=== PATIENT | female | born 1995 | race Caucasian/White ===

== ENCOUNTER 2024-12-26 07:18 | Emergency (ER) | payer BC, SELFPAY ==
[2024-12-26 07:18] VITALS: BP 139/91; PULSE 111; RESP 14; TEMP 36.6; O2SAT 98; BMI 35.9
--- NOTE | 2024-12-26 08:23 | EDS_ITS ---
HPI History of Present Illness Chief Complaint: Abd Pain Informant: patient Narrative Narrative: Patient is a 29-year-old female who reports no significant past medical history. She states she went to bed normally and then woke around 1:30 in the morning with generalized abdominal discomfort and bouts of nausea and vomiting. She denies any known sick contacts at work. She denies any underlying history of stomach disorder. She states that she cannot keep any medication or fluid down and this concerned her and therefore she presents for evaluation [facility] Medical History no medical history no medical history Home Medications ?Medication ?Instructions ?Recorded ?Last Taken ?Type benzonatate 100 mg capsule 100 - 200 mg (1 - 2 x 100 m g) PO 07/31/15 Unknown Rx TID PRN PRN Cough ##20 etodolac 300 mg capsule 300 mg PO TIDCM ##30 6 Unknown Rx Allergy/AdvReac Type Severity Reaction Status Date / Time No Known Allergies Allergy Verified 12/26/24 07:18 Social History Smoking Status: Never smoker [facility] ED Constitutional Constitutional ED: Denies chills or fever(s) ENT ENT ED: Denies sore throat Cardiovascular Cardiovascular: Denies chest pain Respiratory/Chest Respiratory/Chest: Denies cough or dyspnea Gastrointestinal Gastrointestinal: Reports abdominal pain, nausea and vomiting; Denies diarrhea Genitourinary Genitourinary ED: Denies dysuria Musculoskeletal Musculoskeletal: Denies back pain or myalgias Integumentary Denies rash Neurologic Neurologic: Denies headache(s) Hematologic/Lymphatic Hematologic/Lymphatic: Denies easy bleeding or easy bruising EXAM Physical Exam Const Vital Signs: 12/26/24 07:18 Temperature 98 F Temperature Source Temporal Pulse Rate 111 H Respiratory Rate 14 Blood Pressure 139/91 H Blood Pressure Mean 107 Pulse Ox 98 Oxygen Delivery Method Room Air Positive well nourished, well developed and obese General Appearance ED: well developed; Negative for pallor Nutritional Appearance: obese HEENT Reports moist mucous membranes HEENT Narrative: Normocephalic atraumatic No tongue or lip swelling no oral lesions no airway edema or compromise No secondary findings in the posterior pharynx to suggest infection Eyes PERRL and EOMs intact bilaterally General Eye ED: Negative for scleral icterus Neck supple Resp normal respiratory effort and clear to auscultation bilaterally Cardio regular rate and regular rhythm GI non-distended and no masses GI Narrative: Abdomen is soft and nondistended with hyperactive bowel sounds. There is mild diffuse pain with palpation without voluntary guarding or rigidity or pulsatile mass. No peritoneal signs Auscultation: hyperactive bowel sounds Palpation: soft Extremity normal to inspection Neuro oriented x3, CN's II-XII intact bilaterally and no sensory deficits noted Sensorium / Orientation: alert Motor Exam: strength 5/5 throughout Psych Mood & Affect: anxious Skin no rashes or lesions noted General Skin Exam: Negative for jaundice or pallor MDM MDM MDM Narrative Medical decision making narrative: Patient presented to ER after approximately 7 hours of generalized abdominal discomfort and nausea and vomiting. She is afebrile and her abdomen is soft and nonsurgical. Therefore it felt only need for basic laboratory studies to assess for potential underlying infection and acute kidney injury gallbladder dysfunction or pancreatitis or complication. I did discuss with patient we could perform a CT scan as she did states she had concern this could be potential appendicitis. Based on her history and exam I have low concern for this. The patient states that she would prefer to have laboratory studies first and if they are abnormal then progressed to imaging. Therefore basic labs were obtained and patient was treated with IV fluids Toradol and Zofran. At this time laboratory studies and her response to treatment are still pending and therefore should be signed out to the day physician Dr. Calloway. History & Record Review Discussion w/independent historian: Patient Discharge Plan Triage Chief Complaint: Abd Pain ED Provider: Sotero Pimentel Dx/Rx/DC Orders Clinical Impression: Nonspecific abdominal pain, Nausea & vomiting Prescriptions: No Action etodolac 300 MG capsule 300 mg PO TIDCM Qty: 30 0RF Rx Instructions: with food benzonatate 100 MG capsule 100 - 200 mg PO TID PRN PRN (Reason: Cough) Qty: 20 0RF Primary Care Provider: Sanjuana Candelaria Referrals: Sanjuana Candelaria MD [Primary Care Provider, Internal Medicine] Print Language: Khmer
[2024-12-26] MEDS: 0.9% Normal Saline (1000mL) 1,000 ML 999 ML IV (08:57)
[2024-12-26] MEDS: Ketorolac 30 MG/ML Syringe IV (08:57)
[2024-12-26 09:18] LABS: Hematocrit 43.4 % (37-47); Hemoglobin 15.3 g/dL (12.0-15.0); Immature Granulocytes Count 0.030 X10^3/uL (0.0-0.0); Mean Corp Hgb Conc 35.3 g/dL (32-36); Mean Corpuscular Volume 83.3 fL (81-99); Mean Platelet Vol. 8.9 fl (6.2-12.0); NRBC Flagged by Analyzer 0 % (0-5); Platelet Count 321 K/mm3 (150-450); RBC Distribution Width CV 12.1 % (11.6-14.6); RBC Distribution Width SD 36.9 fl (35.1-43.9); Red Blood Count 5.21 M/mm3 (4.2-5.4); White Blood Count 15.9 K/mm3 (4.4-11.0)
[2024-12-26 09:20] LABS: Internal QC Validated? YES +Cl - CLEAR BKGD; Pregnancy, Serum, hCG Quali. NEGATIVE Negative; Record Kit Lot#, Serum Preg. 0000964736
[2024-12-26 09:41] LABS: AST(SGOT) 27 U/L (<=31); Alanine Aminotransfer ALT/SGPT 20 U/L (<=34); Albumin, Serum 4.5 g/dL (3.5-5.0); Alkaline Phosphatase 84 U/L (35-104); Anion Gap 13 (5-15); BUN 8 mg/dL (4-19); BUN/Creat Ratio 11.4 RATIO (10-20); Bilirubin, Direct 0.16 mg/dL (0.00-0.30); Calcium,Total 9.3 mg/dL (7.6-11.0); Carbon Dioxide 22.2 mmol/L (21.0-32.0); Chloride 101 mmol/L (98-108); Estimated Creatinine Clearance 126.95 ml/min (50-250); Globulin 3.1 g/dL (2.2-4.2); Glucose 98 mg/dL (70-99); Lipase 53 U/L (13-75); Potassium 4.3 mmol/L (3.3-5.1)
--- NOTE | 2024-12-26 10:00 | CT_ITS ---
PROCEDURE: ABDOMEN/PELVIS W IV CONT ONLY 12/26/2024 REASON FOR EXAM: ABD PAIN, VOMITING AND DIARRHEA TECHNIQUE: Procedure Code: [id number] Modality: CT Procedure: ABDOMEN/PELVIS W IV CONT ONLY Coronal and Sagittal reconstruction series were provided. CONTRAST: Isovue-300 VOLUME: 100 mL One or more dose reduction techniques were used (e.g., Automated exposure control, adjustment of the mA and/or kV according to patient size, use of iterative reconstruction technique. RADIATION DOSE SUMMARY: CTDlvol: 15.35 mGy DLP: 859.02 mGycm COMPARISON: None FINDINGS: Lung bases: The lung bases are clear. Liver: Normal size. No mass. Gallbladder: Unremarkable Spleen: Normal size. Pancreas: Normal size without evidence of mass surrounding inflammation or ductal dilation. Adrenals: Unremarkable Kidneys: Normal renal sizes. No hydronephrosis. Bladder: Unremarkable Reproductive Organs: Normal uterine size and contour. Ovaries are unremarkable. Follicles are seen in the ovaries. Bowel: No bowel obstruction. Appendix: Unremarkable Lymph nodes: Unremarkable. Vasculature: The abdominal aorta and IVC are normal. Peritoneum / Retroperitoneum: Unremarkable Bones: Unremarkable CT/Abdomen/Pelvis W IV Cont ONLY IMPRESSION: Small follicles are seen in the ovaries. Reading Location: [facility]
[2024-12-26 11:00] VITALS: BP 122/71; PULSE 62; RESP 15; O2SAT 100
[2024-12-26 11:46] VITALS: BP 122/71; PULSE 62; RESP 15; TEMP 36.6; O2SAT 100
== END 2024-12-26 11:48 | disposition home or self-care (01) ==
PROVIDERS: Emergency Provider Emergency Medicine; PCP Internal Medicine; Visit Provider Emergency Medicine
DX: R10.84 Generalized abdominal pain (principal); R11.2 Nausea with vomiting, unspecified; E66.9 Obesity, unspecified
CPT/HCPCS: 74177; 80048; 80076; 83690; 84703; 85025; 96361; 96374; 96375; 99283; Q9967; A4216; J2405